=== PATIENT | male | born 1995 | race Caucasian/White ===

== ENCOUNTER → 2016-11-05 | Outpatient (CLI) | payer OTHER ==
[~2016-11-05] MED LIST: BUSP10TA PO; CITA20TA4 PO; TRAZ100T4 PO; ZITHTAB PO
== END ==
LOC: CLAB 15:28
PROVIDERS: ATTEND Anesthesiology Addiction Medicine
DX: R82.5 Elevated urine levels of drugs, medicaments and biological substances (principal); F11.21 Opioid dependence, in remission
CPT/HCPCS: 80307

== ENCOUNTER 2017-07-30 06:13 | Emergency (ER) | payer SELFPAY ==
[~2017-07-30] VITALS: Ht 180.3 cm; Wt 65.0 kg
[2017-07-30 06:15] VITALS: BP 123/66; PULSE 78; RESP 18; TEMP 97.8; O2SAT 95
[2017-07-30] MEDS ORDERED: SODIUM CHLOR 0.9% 1000 ML INJ 1,000 ML IV SCH (06:42)
[2017-07-30] MEDS ORDERED: FAMOTIDINE 20 MG/2 ML VIAL IV PUSH ONE (06:45)
[2017-07-30] MEDS ORDERED: ONDANSETRON HCL 4 MG/2 ML VIAL IVP ONE (06:45)
[2017-07-30] MEDS ORDERED: SODIUM CHLORIDE 0.9% FLUSH 10 ML FLUSH IV FLUSH PRN (06:45)
--- NOTE | 2017-07-30 06:47 | PD ---
HPI Chief Complaint: Medical Clearance Time Seen by Provider: 06:32 Travel History International Travel<30 days: No Contact w/Intl Traveler<30days: No Traveled to known affect area: No History of Present Illness HPI 21-year-old male complains of coughing congestion, abdominal pain, nausea vomiting. Patient states that he has intermittent coughing congestion for the past. Patient started having abdominal pain with nausea vomiting since yesterday. Patient has history of heroin abuse. Patient states that last used heroin was 6 hours ago. Patient states that he took some Suboxone about 12 hours ago. Patient has been taking [id number] medication in an effort to detox himself. Patient denies any headache. Patient denies any chest pain or shortness of breath. Patient states abdominal pain in cramping pain and sharp pain diffuse over the abdomen. Patient denies any pain radiation. Patient denies any blood or mucus in the stool. Patient denies any dysuria or frequency. Patient denies any fever. PFSH Past Medical History ADD: Yes Anxiety: Yes Depression: Yes Cancer: No Cardiovascular Problems: No Diabetes: No Endocrine: No Gastrointestinal Disorders: No Genitourinary: No Implanted Vascular Access Dvce: No Musculoskeletal: No Neurologic: Yes Psychiatric: No Reproductive: No Respiratory: No Immunizations Current: Yes Migraines: Yes Past Surgical History Other Surgery: No Social History Alcohol Use: No Tobacco Use: Yes Substance Use: Yes (Marijuana, HEROIN ) Allergies-Medications (Allergen,Severity, Reaction): Coded Allergies: penicillin G (Unverified Allergy, Unknown, 07/30/17) as baby; unk reaction Reported Meds & Prescriptions Reported Meds & Active Scripts Active Trazodone (Trazodone HCl) 100 Mg Tab 100 Mg PO HS Buspirone (Buspirone HCl) 10 Mg Tab 10 Mg PO BID Zithromax Z-Pb (Azithromycin) 250 Mg Dspk 250 Mg PO DIRECTED 500 MG (2 tabs) day 1, then 1 tab days 2-5. Reported Citalopram (Citalopram Hydrobromide) 20 Mg Tab 20 Mg PO DAILY Review of Systems General / Constitutional: No: Fever Eyes: No: Visual changes HENT: No: Headaches Cardiovascular: No: Chest Pain or Discomfort Respiratory: Positive: Cough, No: Shortness of Breath Gastrointestinal: Positive: Nausea, Vomiting, Abdominal Pain Genitourinary: No: Dysuria Musculoskeletal: No: Pain Skin: No Rash Neurologic: No: Weakness Psychiatric: No: Depression Endocrine: No: Polydipsia Hematologic/Lymphatic: No: Easy Bruising Physical Exam Narrative GENERAL: Well-nourished, well-developed patient. SKIN: Focused skin assessment warm/dry. HEAD: Normocephalic. EYES: No scleral icterus. No injection or drainage. NECK: Supple, trachea midline. No JVD or lymphadenopathy. CARDIOVASCULAR: Regular rate and rhythm without murmurs, gallops, or rubs. RESPIRATORY: Breath sounds equal bilaterally. No accessory muscle use. GASTROINTESTINAL: Abdomen soft, nondistended. Patient has mild to moderate tenderness diffusely over the abdomen. No rebound tenderness. No mass. MUSCULOSKELETAL: No cyanosis, or edema. BACK: Nontender without obvious deformity. No CVA tenderness. Neurologic exam normal. Data Data Last Documented VS Vital Signs Date Time Temp Pulse Resp B/P (MAP) Pulse Ox O2 Delivery O2 Flow Rate FiO2 07/30/17 06:15 97.8 78 18 123/66 (85) 95 Room Air Orders Orders Complete Blood Count With Diff (07/30/17 06:42) Comprehensive Metabolic Panel (07/30/17 06:42) Lipase (07/30/17 06:42) Urinalysis - C+S If Indicated (07/30/17 06:42) Iv Access Insert/Monitor (07/30/17 06:42) Ecg Monitoring (07/30/17 06:42) Oximetry (07/30/17 06:42) Ondansetron Inj (Zofran Inj) (07/30/17 06:45) Sodium Chlor 0.9% 1000 Ml Inj (Ns 1000 M (07/30/17 06:42) Sodium Chloride 0.9% Flush (Ns Flush) (07/30/17 06:45) Famotidine Inj (Pepcid Inj) (07/30/17 06:45) MDM Medical Decision Making Medical Screen Exam Complete: Yes Emergency Medical Condition: Yes Differential Diagnosis Differential diagnosis including drug withdrawal, gastroenteritis, gastritis, PUD, pancreatitis, cholecystitis, colitis, UTI, pyelonephritis. Narrative Course 31-year-old male with abdominal pain, nausea vomiting and mild dry cough. History of heroin abuse. Normal saline solution 1 L IV bolus. Zofran 4 mg IV. Pepcid 20 mg IV. Chris Durant MD Jul 30, 2017 06:47
[2017-07-30 07:02] LABS: AUTOMATED NEUTROPHIL # 19.9 TH/MM3 (1.8-7.7); BASOPHIL % 0.1 % (0.0-2.0); HEMATOCRIT 50.5 % (39.0-51.0); HEMOGLOBIN 18.2 GM/DL (13.0-17.0); LYMPH % 4.3 % (9.0-44.0); LYMPHOCYTE # 0.9 TH/MM3 (1.0-4.8); MEAN CELL VOLUME 83.4 FL (80.0-100.0); MEAN CORPUSCULAR HEMOGLOBIN 30.1 PG (27.0-34.0); MEAN PLATELET VOLUME 7.1 FL (7.0-11.0); MONO % 3.8 % (0.0-8.0); MONOCYTE # 0.8 TH/MM3 (0-0.9); NEUT % 91.8 % (16.0-70.0); PLATELET COUNT 469 TH/MM3 (150-450); RED BLOOD COUNT 6.06 MIL/MM3 (4.50-5.90); RED CELL DISTRIBUTION WIDTH 13.5 % (11.6-17.2); WHITE BLOOD COUNT 21.7 TH/MM3 (4.0-11.0)
[2017-07-30 07:04] LABS: MEAN CORPUSCULAR HGB CONC 36.1 % (32.0-36.0)
[2017-07-30 07:20] LABS: ALT (GPT) 44 U/L (12-78); AST (GOT) 20 U/L (15-37); BICARBONATE 22.3 MEQ/L (21.0-32.0); BLOOD UREA NITROGEN 30 MG/DL (7-18); CALCIUM 10.9 MG/DL (8.5-10.1); CHLORIDE 96 MEQ/L (98-107); CREATININE 2.13 MG/DL (0.60-1.30); GLOMERULAR FILTRATION RATE 39 ML/MIN (>89); GLUCOSE,RANDOM 218 MG/DL (74-106); LIPASE 65 U/L (73-393); SODIUM (NA) 133 MEQ/L (136-145)
[2017-07-30 07:22] LABS: ALKALINE PHOSPHATASE 102 U/L (45-117); TOTAL BILIRUBIN ADULT 0.6 MG/DL (0.2-1.0); TOTAL PROTEIN 11.2 GM/DL (6.4-8.2)
--- NOTE | 2017-07-30 07:40 | PD ---
Physical Exam Narrative Received sign out from previous provider to follow up labs and reevaluate. Please see previous provider's note for further details. 21yo M with history of heroin abuse her with vomiting and abdominal pain. Labs reviewed, leukocytosis at 21.7. H/H mildly elevated at 18.2/50.2, likely dehydration. BUN/creatinine elevated at 30/2.13 which is higher than baseline. Glucose elevated at 218 but normal CO2 and normal anion gap. Calcium elevated at 10.9. Pt said his last heroin use was 36 hours ago and he took his suboxone too early about 10 hours ago. Pt reevaluated at bedside and said he vomited after zofran and is still have generalized abdominal pain. Feels like his withdrawal. He is still nauseous. Will give another NS IVF and zofran. Will try GI cocktail and obtain CT a/p-. CT a/p showed subtle infiltrate in right lung base concerning for right lower lobe pneumonia. Pt does have a slight cough and given azithromycin. No significant findings to indicate bowel obstruction. No free air or free fluid. Pt is to be admitted for PRAKASH, dehydration and pneumonia. However, pt is signing out AMA and does not want to stay. AMA: The risks of leaving against medical advice without further evaluation treatment were discussed with the patient. These risks include cardiac dysfunction, cardiac dysrhythmia, possible heart attack, possible stroke or . The patient indicated understanding of these risks and appeared to have the capacity to make this decision. Data Data Last Documented VS Vital Signs Date Time Temp Pulse Resp B/P (MAP) Pulse Ox O2 Delivery O2 Flow Rate FiO2 07/30/17 09:00 84 18 127/86 (100) 98 Room Air 07/30/17 06:15 97.8 Orders Orders Complete Blood Count With Diff (07/30/17 06:42) Comprehensive Metabolic Panel (07/30/17 06:42) Lipase (07/30/17 06:42) Iv Access Insert/Monitor (07/30/17 06:42) Ecg Monitoring (07/30/17 06:42) Oximetry (07/30/17 06:42) Ondansetron Inj (Zofran Inj) (07/30/17 06:45) Sodium Chlor 0.9% 1000 Ml Inj (Ns 1000 M (07/30/17 06:42) Sodium Chloride 0.9% Flush (Ns Flush) (07/30/17 06:45) Famotidine Inj (Pepcid Inj) (07/30/17 06:45) Sodium Chlor 0.9% 1000 Ml Inj (Ns 1000 M (07/30/17 07:45) Ct Abd/Pel W/O Iv Contrast (07/30/17 ) Al-Mag Hy-Si 40-40-4 Mg/Ml Liq (Mag-Al P (07/30/17 08:00) Lidocaine 2% Viscous (Xylocaine 2% Visco (07/30/17 08:00) Ondansetron Inj (Zofran Inj) (07/30/17 08:00) Azithromycin Inj (Zithromax Inj) (07/30/17 09:00) Ed Discharge Order (07/30/17 09:52) Labs Laboratory Tests Test 07/30/17 06:50 White Blood Count 21.7 TH/MM3 Red Blood Count 6.06 MIL/MM3 Hemoglobin 18.2 GM/DL Hematocrit 50.5 % Mean Corpuscular Volume 83.4 FL Mean Corpuscular Hemoglobin 30.1 PG Mean Corpuscular Hemoglobin Concent 36.1 % Red Cell Distribution Width 13.5 % Platelet Count 469 TH/MM3 Mean Platelet Volume 7.1 FL Neutrophils (%) (Auto) 91.8 % Lymphocytes (%) (Auto) 4.3 % Monocytes (%) (Auto) 3.8 % Eosinophils (%) (Auto) 0.0 % Basophils (%) (Auto) 0.1 % Neutrophils # (Auto) 19.9 TH/MM3 Lymphocytes # (Auto) 0.9 TH/MM3 Monocytes # (Auto) 0.8 TH/MM3 Eosinophils # (Auto) 0.0 TH/MM3 Basophils # (Auto) 0.0 TH/MM3 CBC Comment AUTO DIFF Differential Comment AUTO DIFF CONFIRMED Platelet Estimate HIGH Platelet Morphology Comment NORMAL Red Cell Morphology Comment NORMAL Blood Urea Nitrogen 30 MG/DL Creatinine 2.13 MG/DL Random Glucose 218 MG/DL Total Protein 11.2 GM/DL Albumin 5.0 GM/DL Calcium Level 10.9 MG/DL Alkaline Phosphatase 102 U/L Aspartate Amino Transf (AST/SGOT) 20 U/L Alanine Aminotransferase (ALT/SGPT) 44 U/L Total Bilirubin 0.6 MG/DL Sodium Level 133 MEQ/L Potassium Level 3.8 MEQ/L Chloride Level 96 MEQ/L Carbon Dioxide Level 22.3 MEQ/L Anion Gap 15 MEQ/L Estimat Glomerular Filtration Rate 39 ML/MIN Lipase 65 U/L MDM Supervised Visit with MINDA: No Diagnosis Primary Impression: Dehydration Additional Impressions: PRAKASH (acute kidney injury) Pneumonia Qualified Codes: J18.1 - Lobar pneumonia, unspecified organism Admitting Information Admitting Physician Requests: Admit Patient Instructions: General Instructions Departure Forms: Tests/Procedures Additional Instruction: Please follow up with your primary care physician or return to ED if you change your mind. You were already given today's azithromycin dose. Please start taking it tomorrow for 4 more days. Med/Other Pt SpecificInfo: Prescription(s) given Scripts Azithromycin (Azithromycin) 250 Mg Tab 250 MG PO DAILY for Infection for 4 Days, #4 TAB 0 Refills Prov: Vanessa Lamas DO 07/30/17 Disposition: 07 AGAINST MEDICAL ADVICE Condition: Stable Vanessa Lamas DO Jul 30, 2017 07:39
[2017-07-30] MEDS ORDERED: SODIUM CHLOR 0.9% 1000 ML INJ 1,000 ML IV ONE (07:45)
[2017-07-30] MEDS ORDERED: ALUMINUM/MAGNESIUM/SIMETH 30 ML CUP PO ONE (08:00)
[2017-07-30] MEDS ORDERED: ONDANSETRON HCL 4 MG/2 ML VIAL IV PUSH ONE (08:00)
[2017-07-30] MEDS ORDERED: LIDOCAINE VISCOUS 2% SOLN 15 ML UDC PO ONE (08:00)
--- NOTE | 2017-07-30 08:47 | RADRPT ---
EXAM DATE/TIME: 07/30/2017 08:05 [facility] COMPARISON: No previous studies available for comparison. INDICATIONS : Abdominal pain, vomiting ORAL CONTRAST: No oral contrast ingested. RADIATION DOSE: 4.50 CTDIvol (mGy) MEDICAL HISTORY : Hepatitis C. SURGICAL HISTORY : None. ENCOUNTER: Initial ACUITY: 1 day PAIN SCALE: 6/10 LOCATION: Abdomen TECHNIQUE: Volumetric scanning of the abdomen and pelvis was performed. Using automated exposure control and ad justment of the mA and/or kV according to patient size, radiation dose was kept as low as reasonably achievable to obtain optimal diagnostic quality images. DICOM format image data is available electro nically for review and comparison. FINDINGS: Imaging through the lung bases demonstrates an area of infiltrate in the right lower lobe concerning for right basilar pneumonia. The appearance of the liver, spleen, pancreas, adrenal glands and kidneys is within normal limits by noncontrast CT. The visualized loops of small and large bowel are normal in caliber. No free intraperitoneal air or f ree intraperitoneal fluid is identified. The appendix is visualized in the right lower quadrant and i s unremarkable in appearance. There is no free fluid within the pelvis. No iliac or inguinal adenopathy is present. The visualized bony structures are intact. CONCLUSION: 1. There is subtle infiltrate in the right lung base concerning for a right lower lobe pneumonia. 2. No findings to indicate bowel obstruction identified. No free air or free fluid is present within the abdomen. Juanito Coates MD on July 30, 2017 at 8:42 Board Certified Radiologist. This report was verified electronically.
[2017-07-30 09:00] VITALS: BP 127/86; PULSE 84; RESP 18; O2SAT 98
[2017-07-30] MEDS ORDERED: AZITHROMYCIN INJ 500 MG in SODIUM CHLOR 0.9% 250 ML INJ 250 ML IV ONE (09:00)
[2017-07-30] MEDS ORDERED: AZIT250T3 PO (09:52)
== END 2017-07-30 10:30 | disposition left against medical advice (07) ==
LOC: NEPC 06:13
DX: E86.0 Dehydration (principal); N17.9 Acute kidney failure, unspecified; J18.1 Lobar pneumonia, unspecified organism; Z72.0 Tobacco use
CPT/HCPCS: 74176; 80053; 83690; 85025; 96361; 96374; 96375; 96376; 99285; J0456; J2405; J7030; J7050